=== PATIENT | female | born 1980 | race Caucasian/White ===

== ENCOUNTER 2022-08-09 06:40 | Observation (INO) | payer OTHER ==
[~2022-08-09 06:40] MED LIST: ADVIL200 M1 PO; CEFAZOLIN SODIUM 2 GM ONE; CELECOXIB 200 MG CAP ONE; DEXAMETHASONE SOD PHOS 10 MG/1 ML VIAL ONE; GABAPENTIN 300 MG CAP ONE; SODIUM CHLORIDE 0.9% 500ML 500 ML ONE; TRANEXAMIC ACID 20 ML ONE; TYLENOL325 MG PO; Vancomycin IV 1,000 MG ONE
[2022-08-09] MEDS ORDERED: EPINEPHRINE HCL 1:1000 1ML 1 MG/ML AMP ONE (07:01)
[2022-08-09] MEDS ORDERED: ROPIVACAINE 0.5% 5 MG/ML 30 ML SDV ONE (07:01)
[2022-08-09] MEDS ORDERED: DEXMEDETOMIDINE HCL 2 ML ONE (07:01)
[2022-08-09] MEDS ORDERED: ROPIVACAINE 246.25 MG, EPINEPHRINE HCL 1:1000 1ML 0.5 MG, CLONIDINE HCL 0.08 MG, KETORO... INJ ONE ×5 (07:30)
[2022-08-09] MEDS ORDERED: HYDROCODONE/APAP 5MG-325MG TAB PO PRN (08:30)
[2022-08-09] MEDS ORDERED: DOCUSATE SODIUM 100 MG CAP PO PRN (08:30)
[2022-08-09] MEDS: SODIUM CHLORIDE 0.9% 1000ML 1,000 ML IV SCH ×2 (08:30→18:30)
[2022-08-09] MEDS ORDERED: HYDROCODONE/APAP 7.5MG-325MG 1 EA TAB PO PRN (08:30)
[2022-08-09] MEDS ORDERED: ZOLPIDEM TARTRATE 5 MG TAB PO PRN (08:30)
[2022-08-09] MEDS ORDERED: ONDANSETRON HCL INJ 2MG/ML 2ML 2 MG/ML VIAL IV PRN (08:30)
[2022-08-09] MEDS ORDERED: DIPHENHYDRAMINE HCL INJ 50 MG/ML VIAL IV PRN (08:30)
[2022-08-09] MEDS ORDERED: ACETAMINOPHEN 650 MG SUPP PR PRN (08:30)
[2022-08-09] MEDS ORDERED: MEPERIDINE HCL INJ 25 MG/ML VIAL ONE (08:46)
[2022-08-09] MEDS: CELECOXIB 100 MG CAP PO SCH ×2 (09:00→17:00)
[2022-08-09] MEDS: ASPIRIN 325 MG TAB PO SCH ×2 (09:00→17:00)
[2022-08-09 12:16] VITALS: BP 98/55
[2022-08-09 12:32] VITALS: BP 98/55
[2022-08-09] MEDS ORDERED: ACETAMINOPHEN 1000 MG/100 ML IV PRN (14:00)
[2022-08-09 16:00] VITALS: BP 89/60
[2022-08-09 17:00] VITALS: BP 96/68
[2022-08-09] MEDS ORDERED: ONDANSETRON HCL INJ 2MG/ML 2ML 2 MG/ML VIAL ONE (17:34)
[2022-08-09] MEDS ORDERED: LIDOCAINE HCL 2% LOCAL INJ 5 ML SDV VIAL INJ ONE (17:34)
[2022-08-09] MEDS ORDERED: DEXAMETHASONE SOD PHOS INJ 4 MG/ML SDV ONE (17:34)
[2022-08-09] MEDS ORDERED: POVIDONE IODINE 0.05% 0.05 % ML PO ONE (17:34)
[2022-08-09] MEDS ORDERED: PROPOFOL IV EMULSION 10 MG/ML 20 ML VIAL ONE (17:34)
[2022-08-09] MEDS ORDERED: SEVOFLURANE INHAL SOLN 250 ML PEN BTL ONE (17:34)
[2022-08-09] MEDS ORDERED: FENTANYL CITRATE/PF 100MCG/2 ML INJ ONE (17:56)
[2022-08-09] MEDS ORDERED: MIDAZOLAM HCL 2 MG/2 ML VIAL ONE (17:56)
== END 2022-08-09 18:30 | disposition home or self-care (01) ==
LOC: OR 06:40 → PACU V 09:01 → MED/SURG 11:26
PROVIDERS: ADMIT Specialist; ATTEND Specialist
DX: M17.12 Unilateral primary osteoarthritis, left knee (principal); Z01.818 Encounter for other preprocedural examination
CPT/HCPCS: 0223U; 27130; 36415; 73560; 86850; 86900; 86920; 94799; 97116; 97161; 97530; G0378; J0131; J0171; J0690; J1100 ×2; J1885; J2001; J2175; J2250; J2405; J2704; J2795; J3010; J3370; J7030; J7040; C1713; C1776